=== PATIENT | male | born 1950 | race Caucasian/White ===

== ENCOUNTER 2018-01-24 09:07 | Outpatient (CLI) | payer MEDICARE, OTHER ==
[2018-01-24 10:32] LABS: Bilirubin Negative (Negative); Blood, Urine Negative (Negative); Clarity CLEAR (Clear); Glucose, Urine (Dipstick) Negative (Negative); Leukocyte Negative (Negative); Nitrite Negative (Negative); Protein, Urine (Dipstick) Negative (Neg-Trace); Specific Gravity, Urine 1.022 (1.002-1.036); Urobilinogen 0.2 mg/dL (0.2-1.0); pH, Urine 5.5 (5.0-9.0)
[2018-01-24 10:44] LABS: Bacteria/HPF None Seen HPF (None Seen); Hyaline Casts/LPF 0-3 HYALINE CAST LPF (0-3 Hyaline); Squamous Epithelial None Seen HPF (0-3); WBC/HPF None Seen HPF (0-3)
--- NOTE | 2018-01-24 13:27 | RAD ---
PA AND LATERAL CHEST: History: Pre op. Comparison: 02-16-10 FINDINGS: Heart size is enlarged with post op sternotomy change and valve replacement. Surgical clips are seen overlying the right upper chest. The lungs are clear of any infiltrative process. IMPRESSION: Cardiomegaly. No active intrathoracic disease. POS: [facility]
== END 2018-01-24 09:08 | disposition home or self-care (01) ==
LOC: LABBT 09:07
PROVIDERS: ATTEND Orthopaedic Surgery
DX: Z01.818 Encounter for other preprocedural examination (principal); M17.11 Unilateral primary osteoarthritis, right knee
CPT/HCPCS: 71046; 81001; 87081; 93005; 93010

== ENCOUNTER 2018-01-31 07:49 | Outpatient (CLI) | payer MEDICARE ==
[2018-01-31 08:39] LABS: #Basophils 0.1 thou/uL (0.0-0.2); #Eosinphils 0.2 thou/uL (0.0-0.7); #Lymphocytes 1.6 thou/uL (1.20-3.40); #Monocytes 0.8 thou/uL (0.11-0.59); #Neutrophils 4.8 thou/uL (1.40-6.50); %Basophils 0.8 % (0.0-1.0); %Eosinophils 2.7 % (0.0-10.0); %Lymphocytes 21.2 % (21.0-51.0); %Monocytes 10.9 % (0.0-10.0); %Neutrophils 64.4 % (42.0-75.0); Hemoglobin 14.6 g/dL (14.0-18.0); Mean Corpuscular HGB CONC 32.8 g/dL (32.0-36.0); Mean Corpuscular Hemoglobin 32.6 pg (27.0-31.0); Mean Corpuscular Volume 99.2 fL (78.0-98.0); Mean Platelet Volume 6.3 fL (7.4-10.4); Platelet Count 248 thou/uL (130-400); RBC Distribution Width 12.2 % (11.5-14.5); Red Blood Cell (RBC) Count 4.49 mill/uL (4.70-6.10); White Blood Cell (WBC) Count 7.5 thou/uL (4.8-10.8)
[2018-01-31 08:59] LABS: Anion Gap 10 mmol/L (10-20); BUN (Urea Nitrogen) 18 mg/dL (8.4-25.7); Calc. Creatinine Clearance 0 mL/min (70-130); Calcium 9.4 mg/dL (7.8-10.44); Carbon Dioxide 26 mmol/L (23-31); Chloride 105 mmol/L (98-107); Estimated GFR-MDRD 75; Glucose 98 mg/dL (80-115); Potassium 4.3 mmol/L (3.5-5.1); Sodium 137 mmol/L (136-145)
[2018-01-31 09:00] LABS: INR-International Normal Ratio 1.8
== END 2018-01-31 07:50 | disposition home or self-care (01) ==
LOC: LABBT 07:49
PROVIDERS: ATTEND Orthopaedic Surgery
DX: Z01.812 Encounter for preprocedural laboratory examination (principal); M17.11 Unilateral primary osteoarthritis, right knee
CPT/HCPCS: 80048; 85025; 85610; 86850; 86900; 86901

== ENCOUNTER 2018-02-05 05:31 | Inpatient (IN) | payer MEDICARE, OTHER ==
[2018-01-24 09:41] VITALS: BMI 28.4
[2018-02-05] MEDS ORDERED: Sodium Chloride 0.9% 100 ML ONE (06:10)
[2018-02-05] MEDS ORDERED: CEFAZOLIN/Water 2 GM/20 ML SYRINGE ONE (06:10)
[2018-02-05] MEDS ORDERED: Midazolam HCl 2 mg/2 ml Vial ONE (06:17)
[2018-02-05] MEDS ORDERED: Fentanyl 100 MCG/2 ML VIAL ONE ×4 (06:17→09:11)
[2018-02-05] MEDS ORDERED: PROPOFOL 20 ML ONE (06:20)
[2018-02-05] MEDS ORDERED: Lidocaine 1% (PF) 30 ML VIAL ONE ×2 (06:20→06:25)
[2018-02-05] MEDS ORDERED: Vancomycin HCl 1.5 GM in Sodium Chloride 0.9% 250 ML 300 ML IVPB SCH (06:30)
[2018-02-05] MEDS ORDERED: Zolpidem Tartrate 5 MG TAB PO PRN ×2 (06:54→07:47)
[2018-02-05] MEDS ORDERED: Promethazine HCl 25 MG/ML VIAL IM PRN ×2 (06:54→07:47)
[2018-02-05] MEDS ORDERED: diphenhydrAMINE 25 MG CAP PO PRN (06:54)
[2018-02-05] MEDS ORDERED: Acetaminophen 325 MG TAB PO PRN (06:54)
[2018-02-05] MEDS ORDERED: Fentanyl 100 MCG/2 ML VIAL SLOW IVP PRN ×2 (06:54)
[2018-02-05] MEDS ORDERED: traMADol HCl 50 MG TAB PO PRN ×3 (06:54→07:47)
[2018-02-05] MEDS ORDERED: HYDROcodone/Acetaminophen 10/325 mg Tablet PO PRN ×3 (06:54→07:47)
[2018-02-05] MEDS ORDERED: Ondansetron PF 4 MG/2 ML Vial IVP PRN ×2 (06:54→07:47)
[2018-02-05] MEDS ORDERED: Ketorolac Tromethamine 30 MG/ML VIAL IVP PRN (07:47)
[2018-02-05] MEDS ORDERED: Fentanyl 100 MCG/2 ML VIAL IV PRN (07:47)
[2018-02-05] MEDS ORDERED: Ondansetron HCl/PF 4 MG/2 ML Vial IVP PRN (08:25)
[2018-02-05] MEDS ORDERED: Aspirin 81 mg Enteric Coated Tablet PO SCH ×2 (09:00)
[2018-02-05] MEDS ORDERED: PSEUDOEPHEDRINE HCL 120 MG PO SCH (09:00)
--- NOTE | 2018-02-05 09:44 | RAD ---
RIGHT KNEE TWO VIEWS: History: 67-year-old male with history of post op total knee arthroplasty. FINDINGS/IMPRESSION: Recent total knee arthroplasty changes are noted without evidence for dislocation or periprosthetic f racture. POS: [facility]
[2018-02-05] MEDS: Sodium Chloride 0.9% 1,000 ML IV SCH ×3 (10:16→19:14)
[2018-02-05] MEDS: Ferrous Gluconate 324 MG TAB PO SCH ×2 (10:17→21:24)
[2018-02-05] MEDS: Multivitamin W/ Minerals 1 TAB PO SCH (10:17)
--- NOTE | 2018-02-05 10:17 | OP ---
PREOPERATIVE DIAGNOSIS: Degenerative joint disease, right knee. POSTOPERATIVE DIAGNOSIS: Degenerative joint disease, right knee. SURGEON: Matt Olivier M.D. DRYING ROOM OPERATOR: Dom Rose PA-C. BLOOD LOSS: Minimal. SPECIMENS: None. DRAINS: None. COMPLICATIONS: None. TOURNIQUET TIME: 49 minutes. IMPLANTS USED: Jose Triathlon 6 femur, 6 tibia, 9 mm CSX3 polyethylene and A38 patella. PROCEDURE IN DETAIL: After informed consent was obtained in the preoperative holding area. The bhumi ent was taken to the operative suite where general anesthesia was induced. Once adequate level of ge neral anesthesia was obtained, the patient was positioned and a well-padded tourniquet was placed chris und the right proximal thigh. The right lower extremity was then prepped and draped in the usual nigel rile fashion. Prior to exsanguination, a time out was called and all members of the surgical team ag gil upon site, surgeon, and patient. The extremity was then exsanguinated and the tourniquet was ra ised. A midline longitudinal incision was then made directly over the patella extending two fingerbr eadths above the superior pole of the patella and two fingerbreadths inferior to the inferior patella r pole of the patella. Deeper subcutaneous layers were dissected sharply and local bleeding was cont rolled with Bovie electrocautery. A quad tendon longitudinal split was then made sharply and a media n parapatellar arthrotomy was carried out both sharp and with Bovie electrocautery, carried down to o ne fingerbreadth medial to the tibial tubercle. The knee was then placed into flexion and the patell a was everted nicely, and a copious fat pad ectomy was performed allowing for greater exposure of the tibia. The computer-assisted distal femoral fiducial was then placed and pinned firmly, and the dis hang femoral cutting guide was pinned firmly into place. The oscillating saw was then used to remove the appropriate amount of bone. The 4-in-1 cutting block was then placed on the distal femur and the oscillating saw was used to remove the appropriate amount of bone off of the anterior, posterior, an d chamfer cuts. After completion of bone cuts, the anterior cruciate ligament was resected sharply a nd the posterior cruciate ligament retractor was placed and the tibia was subluxed for better exposur e. Partial meniscectomies were carried out, and the tibial computer-assisted fiducial was pinned, an d the cutting guide was placed. Oscillating saw was then used to remove the bone with Hohmann retrac tors used to take care and protect the collateral ligaments. After the tibial resection was performe d, a laminar land surveyor manager was placed in between the freshened bone cuts. The knee placed at 90 degrees a nd further bilateral meniscectomies were carried out, and the curved osteotome and curettage was used to remove any excess bone spurs in the posterior compartment. The trial femoral component, tibial b aseplate were placed with the appropriate polyethylene trial insert with an appropriate polyethylene spacer and patellar button. The knee was taken through full range of motion with flexion and extensi on from 0-90 degrees and patellar broach squarely in the trochlea without any squinting or subluxatio n noted. The knee was also stable to varus and valgus stressing at 0, 15, 45, and 90 degrees of flex ion. The drawer was negative. All trial components were then removed and the keel punch was used to provide the appropriate defect in the tibia with a mallet. The freshened bone cuts were copiously ir rigated with pulsatile lavage of about 1-1/2 liters to remove all excess debris. The freshened bone cuts were then dried and with suction and lap sponge. The knee was placed in flexion and retractors were placed to provide access to all bone cuts. Tobramycin impregnated methyl methacrylate cement wa s then placed on the freshened bone cuts and implants which were malleted firmly into place. Curetta ge and Falkner elevators were used to remove any excess bone cement. The knee was placed into full ext ension and the patellar button was placed under compression, and the cement was allowed to cure. Onc e completed, the components were again taken through full range of motion and copious irrigation of t he knee was carried out with another liter of normal saline. All components were inspected fully wit h full range of motion and varus and valgus stressing. There was no laxity noted and full extension w as observed clinically. Primary closure was accomplished with #2 interrupted Vicryl stitch of the ar throtomy defect. This was oversewn with a #2 running Quill barbed stitch. The gravitational platele t system was then injected into the arthrotomy prior to closure. The subcutaneous layer was then jose alberto sed with a running 0 barbed Monocryl stitch and skin closure accomplished with a running subcuticular 3-0 Monocryl barbed Quill stitch and augmented with cement on the skin. Tourniquet was lowered. Go od spontaneous return of distal pulses was noted clinically and a sterile dressing was applied to the incision. The procedure was terminated without any complications. The patient was awakened in the operative suite and the tourniquet was removed, and the patient was taken to the recovery room in sta ble condition.
[2018-02-05] MEDS: Senokot S 8.6-50 MG TAB PO SCH ×2 (10:18→21:24)
[2018-02-05] MEDS ORDERED: Bupivacaine 0.25% HCL 30 ML VIAL ONE (12:41)
[2018-02-05] MEDS ORDERED: Ropivacaine 0.5% HCl/PF (150 MG/30 ML VIAL) ONE (12:41)
[2018-02-05] MEDS ORDERED: Dexamethasone 20 MG/5 ML VIAL ONE (12:54)
[2018-02-05] MEDS ORDERED: PHENYLEPHRINE-NS 100 MCG/ML 10 ML SYRINGE ONE (12:54)
[2018-02-05] MEDS ORDERED: Ketorolac Tromethamine 30 MG/ML VIAL ONE (12:54)
[2018-02-05] MEDS ORDERED: Ondansetron PF 4 MG/2 ML Vial ONE (12:54)
[2018-02-05] MEDS ORDERED: PROPOFOL 200 MG/20 ML VIAL ONE (12:54)
--- NOTE | 2018-02-05 13:15 | CON ---
DATE OF CONSULTATION: 02/05/2018 HISTORY OF PRESENT ILLNESS: This is a 67-year-old white male who is postop day #0, status post total right knee replacement by Dr. Olivier. The patient has a history of coronary artery disease, hyperte nsion, hyperlipidemia. He is doing well at this time. He is presently reading, in no acute distress . He is sitting up in bed. PAST MEDICAL HISTORY: Hypothyroidism, coronary artery disease, hypertension, hyperlipidemia. PAST SURGICAL HISTORY: Cardiac catheterization in 1993 and 2009, coronary artery bypass grafting x3 11/2009 with aortic valve replacement. FAMILY HISTORY: Father with heart disease. Mother with hyperlipidemia. SOCIAL HISTORY: He is . 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 He is a nonsmoker. MEDICATIONS: Aspirin 81 mg daily, Coumadin 7.5 at bedtime, Crestor 40 mg daily, Levoxyl 75 mg daily, Prilosec 40 mg daily. ALLERGIES: None. REVIEW OF SYSTEMS: As above. PHYSICAL EXAMINATION: VITAL SIGNS: Temperature 97.8, pulse 83, respirations 18, pulse ox 97, blood pressure 154/72. HEENT: No acute distress. HEART: Regular rate and rhythm with a valve replacement noted. LUNGS: Clear. ABDOMEN: Soft. EXTREMITIES: Right knee in brace. No edema present. LABORATORY AND X-RAY FINDINGS: None. ASSESSMENT: 1. Postop day #0, status post total right knee replacement. 2. Coronary artery disease. 3. Hypertension. 4. Hyperlipidemia. 5. Hypothyroidism. 6. Gastroesophageal reflux disease. PLAN: 1. Continue routine postop care and therapy. 2. Coumadin has been restarted and the Lovenox will be continued until Coumadin is therapeutic. 3. Continue Crestor, Levoxyl and Prilosec. 4. We will continue to follow and will follow up in the office in the next week.
[2018-02-05] MEDS: Prenatal Vitamin 1 TAB PO SCH (14:29)
[2018-02-05] MEDS: CEFAZOLIN/Water 2 GM/20 ML SYRINGE SLOW IVP SCH ×2 (14:29→21:28)
[2018-02-05] MEDS: Ezetimibe 10 MG TAB PO SCH (14:29)
[2018-02-05] MEDS ORDERED: Warfarin Sodium 5 MG TAB PO ONE (17:00)
[2018-02-05] MEDS ORDERED: Non-Formulary Item 1 EACH (Omeprazole Magnesium [Prilosec] 10 MG) PO SCH (21:00)
[2018-02-05] MEDS ORDERED: Non-Formulary Item 1 EACH (Bimatoprost [Lumigan] 1 DROP) EA EYE SCH (21:00)
[2018-02-05] MEDS: Rosuvastatin 20 MG TAB PO SCH (21:24)
[2018-02-05] MEDS: Latanoprost 0.005% Ophth Soln 2.5 ml Bottle EA EYE SCH (21:25)
[2018-02-05] MEDS: HYDROcodone/Acetaminophen 10/325 mg Tablet PO PRN (21:37)
[2018-02-06] MEDS: HYDROcodone/Acetaminophen 10/325 mg Tablet PO PRN ×5 (02:13→20:15)
[2018-02-06] MEDS: Sodium Chloride 0.9% 1,000 ML IV SCH ×2 (03:26→07:38)
[2018-02-06 06:34] LABS: Prothrombin Time 13.4 SEC (12.0-14.7)
[2018-02-06 06:48] LABS: Hemoglobin 12.4 g/dL (14.0-18.0); Mean Corpuscular HGB CONC 32.2 g/dL (32.0-36.0); Mean Corpuscular Hemoglobin 32.5 pg (27.0-31.0); Mean Platelet Volume 6.3 fL (7.4-10.4); Platelet Count 196 thou/uL (130-400); RBC Distribution Width 12.3 % (11.5-14.5); Red Blood Cell (RBC) Count 3.83 mill/uL (4.70-6.10); White Blood Cell (WBC) Count 15.4 thou/uL (4.8-10.8)
--- NOTE | 2018-02-06 08:43 | PRG ---
DATE OF SERVICE: 02/06/2018 SUBJECTIVE: The patient continues to do well. However, earlier the patient was raising his knee and he felt a pop and is little bit concerned because this was followed by pain. He will discuss this w ith Dr. Olivier. OBJECTIVE: VITAL SIGNS: Temperature 97.8, pulse 82, respirations 16, pulse ox 93, blood pressure 104/54. LUNGS: Clear. ABDOMEN: Soft. EXTREMITIES: No edema. LABORATORY: White count 15.4, H&H 12 and 38. ASSESSMENT: 1. Postop day #1, status post right total knee replacement. 2. Coronary artery disease. 3. Hypertension. 4. Hyperlipidemia. 5. Hypothyroid. 6. Gastroesophageal reflux disease. PLAN: 1. Continue routine postop care. Hopefully, can be discharged tomorrow. 2. Continue Coumadin and Lovenox. 3. Continue Crestor, Levoxyl and Prilosec. 4. We will follow up in the office in the next few days.
[2018-02-06] MEDS: Prenatal Vitamin 1 TAB PO SCH (09:08)
[2018-02-06] MEDS: Multivitamin W/ Minerals 1 TAB PO SCH (09:08)
[2018-02-06] MEDS: Ferrous Gluconate 324 MG TAB PO SCH ×2 (09:08→20:15)
[2018-02-06] MEDS: Enoxaparin Sodium 40 MG/0.4 ML SYRINGE SC SCH ×2 (09:09→20:13)
[2018-02-06] MEDS: Senokot S 8.6-50 MG TAB PO SCH ×2 (09:09→20:15)
[2018-02-06] MEDS: Ezetimibe 10 MG TAB PO SCH (09:09)
[2018-02-06] MEDS: Ropivacaine HCl/PF 250 ML in Premix Bag 1 BAG NERVE BLCK SCH (10:13)
[2018-02-06] MEDS ORDERED: Warfarin Sodium 7.5 MG TAB PO SCH (17:00)
[2018-02-06] MEDS: Latanoprost 0.005% Ophth Soln 2.5 ml Bottle EA EYE SCH (20:13)
[2018-02-06] MEDS: Rosuvastatin 20 MG TAB PO SCH (20:14)
[2018-02-07 06:02] LABS: Hemoglobin 10.8 g/dL (14.0-18.0); Mean Corpuscular HGB CONC 33.4 g/dL (32.0-36.0); Mean Corpuscular Hemoglobin 33.4 pg (27.0-31.0); Mean Platelet Volume 6.4 fL (7.4-10.4); Platelet Count 180 thou/uL (130-400); RBC Distribution Width 12.1 % (11.5-14.5); Red Blood Cell (RBC) Count 3.23 mill/uL (4.70-6.10); White Blood Cell (WBC) Count 17.1 thou/uL (4.8-10.8)
--- NOTE | 2018-02-07 08:24 | PRG ---
DATE OF SERVICE: 02/07/2018. SUBJECTIVE: The patient is awake, alert, comfortable and doing well. No complaints. OBJECTIVE: VITAL SIGNS: Temperature 98.7, pulse 88, respirations 18, pulse ox 93, blood pressure 158/79. HEART: Regular rate and rhythm. LUNGS: Clear. ABDOMEN: Soft. EXTREMITIES: Right knee with swelling. LABORATORY DATA: INR pending. ASSESSMENT: 1. Postop day #2 status post right total knee replacement. 2. Coronary artery disease. 3. Hypertension. Blood pressure is slightly elevated this morning. We will continue to follow. If remains elevated, then we will add additional medication. 4. Hyperlipidemia. 5. Hypothyroidism. 6. Reflux. PLAN: 1. Continue routine postop care and physical therapy. 2. INR level pending. May have to stay another day if INR remains low. Lovenox has been stopped du e to the leg swelling. 3. We will add additional antihypertensive if blood pressure remains elevated.
[2018-02-07] MEDS: Enoxaparin Sodium 40 MG/0.4 ML SYRINGE SC SCH ×2 (09:36→21:18)
[2018-02-07] MEDS: Prenatal Vitamin 1 TAB PO SCH (09:37)
[2018-02-07] MEDS: Ezetimibe 10 MG TAB PO SCH (09:37)
[2018-02-07] MEDS: Senokot S 8.6-50 MG TAB PO SCH ×2 (09:37→21:18)
[2018-02-07] MEDS: Multivitamin W/ Minerals 1 TAB PO SCH (09:37)
[2018-02-07] MEDS: Ferrous Gluconate 324 MG TAB PO SCH ×2 (09:37→21:18)
[2018-02-07 10:07] LABS: INR-International Normal Ratio 1.5; Prothrombin Time 18.2 SEC (12.0-14.7)
[2018-02-07] MEDS: HYDROcodone/Acetaminophen 10/325 mg Tablet PO PRN ×2 (13:42→18:35)
[2018-02-07] MEDS: Ropivacaine HCl/PF 250 ML in Premix Bag 1 BAG NERVE BLCK SCH (14:31)
[2018-02-07] MEDS: Sodium Chloride 0.9% 1,000 ML IV SCH ×3 (14:32→19:16)
[2018-02-07] MEDS ORDERED: Warfarin Sodium 10 MG TAB PO SCH (17:00)
[2018-02-07] MEDS: Rosuvastatin 20 MG TAB PO SCH (21:18)
[2018-02-07] MEDS: Latanoprost 0.005% Ophth Soln 2.5 ml Bottle EA EYE SCH (21:34)
[2018-02-08] MEDS: Sodium Chloride 0.9% 1,000 ML IV SCH (01:47)
[2018-02-08] MEDS: HYDROcodone/Acetaminophen 10/325 mg Tablet PO PRN ×2 (04:51→08:22)
[2018-02-08 06:17] LABS: Hemoglobin 10.2 g/dL (14.0-18.0); Mean Corpuscular Hemoglobin 33.1 pg (27.0-31.0); Mean Platelet Volume 7.1 fL (7.4-10.4); Platelet Count 190 thou/uL (130-400); RBC Distribution Width 12.2 % (11.5-14.5); Red Blood Cell (RBC) Count 3.09 mill/uL (4.70-6.10); White Blood Cell (WBC) Count 12.8 thou/uL (4.8-10.8)
[2018-02-08 06:20] LABS: INR-International Normal Ratio 1.5; Prothrombin Time 18.5 SEC (12.0-14.7)
--- NOTE | 2018-02-08 07:51 | PRG ---
DATE OF SERVICE: 02/08/2018 SUBJECTIVE: The patient is doing well this morning. He states his leg swelling is decreasing somewh at. OBJECTIVE: VITAL SIGNS: Temperature 99.4, pulse 91, respirations 18, pulse ox 96 on room air, blood pressure 13 3/69. HEART: Regular rate and rhythm. LUNGS: Clear. ABDOMEN: Soft. EXTREMITIES: Right knee swelling appears to decrease. LABORATORY DATA: H&H is 10 and 31. INR 1.5. ASSESSMENT: 1. Postop day #3 status post total right knee replacement. 2. Coronary artery disease. 3. Hypertension. 4. Hyperlipidemia. 5. Hypothyroidism. 6. Reflux. PLAN: Patient's right knee swelling has decreased. He is doing well at this time. His INR is 1.5 t kumar. The patient has continued to receive the Lovenox. He has 4 doses at home. I feel he can go h ome today. He can continue his Lovenox injections on Sunday and Sunday. I recommend that he recei ve Coumadin 10 mg today prior to discharge and to continue his regular dose of 7.5 on Sunday and . Then follow up on Sunday with me and I will redraw his INR.
[2018-02-08 08:05] VITALS: BP 151/77; TEMP 98.3
[2018-02-08] MEDS: Enoxaparin Sodium 40 MG/0.4 ML SYRINGE SC SCH (08:21)
[2018-02-08] MEDS: Multivitamin W/ Minerals 1 TAB PO SCH (08:22)
[2018-02-08] MEDS: Ezetimibe 10 MG TAB PO SCH (08:22)
[2018-02-08] MEDS: Prenatal Vitamin 1 TAB PO SCH (08:22)
[2018-02-08] MEDS: Senokot S 8.6-50 MG TAB PO SCH (08:22)
[2018-02-08] MEDS: Ferrous Gluconate 324 MG TAB PO SCH (08:22)
--- NOTE | 2018-02-08 12:52 | DIS ---
DATE OF ADMISSION: 02/05/2018 DATE OF DISCHARGE: 02/08/2018 DIAGNOSES: Right total knee replacement, history of prosthetic valve replacement. HOSPITAL COURSE: The patient was admitted to the hospital and underwent total knee arthroplasty with out difficulty. He was kept an extra day for difficulty voiding. He has been on Lovenox bridge ther apy plus Coumadin. His INR is 1.5 at the time of discharge. He has Lovenox for home use. He has a small amount of bloody drainage from the wound. Plan at this time is to discharge home. No physical therapy. Recheck the wound in 4 days. He will follow up with , his primary care doctor in 3 days. There were no complications.
== END 2018-02-08 11:12 | disposition home or self-care (01) | DRG 470 ==
LOC: SDC 05:31 → SJJU 10:04
PROVIDERS: ADMIT Orthopaedic Surgery; ATTEND Orthopaedic Surgery
PROC: 0SRC069 Replacement of Right Knee Joint with Oxidized Zirconium on Polyethylene Synthetic Substitute, Cemented, Open Approach (ICD-10-PCS; principal; 2018-02-05)
PROC: 3E0T3BZ Introduction of Anesthetic Agent into Peripheral Nerves and Plexi, Percutaneous Approach (ICD-10-PCS; 2018-02-05)
DX: M17.11 Unilateral primary osteoarthritis, right knee (principal); I25.10 Atherosclerotic heart disease of native coronary artery without angina pectoris; I10 Essential (primary) hypertension; E78.5 Hyperlipidemia, unspecified; E03.9 Hypothyroidism, unspecified; K21.9 Gastro-esophageal reflux disease without esophagitis; Z79.01 Long term (current) use of anticoagulants; Z95.2 Presence of prosthetic heart valve; Z79.82 Long term (current) use of aspirin; Z95.1 Presence of aortocoronary bypass graft
CPT/HCPCS: 36415; 85027; 85610; 96374; C1713; C1776; G8978-GP-CJ; G8979-GP-CI; J1100; J1650; J1885; J2001; J2250; J2405; J2704; J2795; J3010; J3370; J7050; S0020

== ENCOUNTER 2020-12-13 15:37 | Outpatient (CLI) | payer MEDICARE ==
[2020-12-13 16:51] LABS: ALT (SGPT) 20 U/L (8-55); AST (SGOT) 21 U/L (5-34); Alkaline Phosphatase 52 U/L (40-110); Anion Gap 11 mmol/L (10-20); BUN (Urea Nitrogen) 13 mg/dL (8.4-25.7); Bilirubin, Total 1.9 mg/dL (0.2-1.2); Calc. Creatinine Clearance 0 mL/min (70-130); Calcium 9.3 mg/dL (7.8-10.44); Carbon Dioxide 28 mmol/L (23-31); Chloride 106 mmol/L (98-107); Globulin 2.2 g/dL (2.4-3.5); Glucose 98 mg/dL (83-110); Potassium 3.9 mmol/L (3.5-5.1); Protein, Total 6.2 g/dL (5.8-8.1); Sodium 141 mmol/L (136-145)
[2020-12-13 16:57] LABS: %Basophils 0.9 % (0.0-2.0); %Eosinophils 1.9 % (0.0-6.0); %Lymphocytes 20.6 % (18.0-47.0); %Monocytes 11.6 % (0.0-10.0); %Neutrophils 64.7 % (40.0-75.0); Hemoglobin 13.4 g/dL (13.5-17.5); Mean Corpuscular HGB CONC 33.4 g/dL (32.0-36.0); Mean Corpuscular Hemoglobin 32.4 pg (27.0-33.0); Mean Corpuscular Volume 97.1 fl (81.2-95.1); Mean Platelet Volume 9.1 fl (7.4-10.4); Platelet Count 216 10x3/uL (150-450); RBC Distribution Width 12.6 % (11.5-14.5); Red Blood Cell (RBC) Count 4.13 10x6/uL (4.32-5.72); White Blood Cell (WBC) Count 6.9 10x3/uL (3.5-10.5)
[2020-12-13 16:58] LABS: #Basophils 0.1 10x3/uL (0.0-0.2); #Eosinphils 0.1 10x3/uL (0.0-0.5); #Monocytes 0.8 10x3/uL (0.0-1.1); #Neutrophils 4.5 10x3/uL (1.5-8.4)
[2020-12-13 17:09] LABS: INR-International Normal Ratio 1.5; PTT 34.1 sec (22.0-33.0); Prothrombin Time 16.4 sec (9.5-12.1)
[2020-12-14 13:05] LABS: SARS-CoV-2 PCR by NAA Not Detected (NotDetected)
== END 2020-12-13 15:38 | disposition home or self-care (01) ==
LOC: LABBT 15:37
PROVIDERS: ATTEND Internal Medicine Cardiovascular Disease
DX: Z01.812 Encounter for preprocedural laboratory examination (principal); I25.10 Atherosclerotic heart disease of native coronary artery without angina pectoris; R94.39 Abnormal result of other cardiovascular function study; Z20.822 Contact with and (suspected) exposure to COVID-19
CPT/HCPCS: 80053; 85025; 85610; 85730; U0003; U0005

== ENCOUNTER 2022-08-17 17:30 | Outpatient (CLI) | payer MEDICARE | END 2022-08-17 17:31 | disposition home or self-care (01) | LOC: SLEEPLAB 17:30 | PROVIDERS: ATTEND Family Medicine | DX: G47.10 Hypersomnia, unspecified (principal); G47.33 Obstructive sleep apnea (adult) (pediatric) | CPT/HCPCS: 95800 ==

== ENCOUNTER 2022-10-27 07:40 | Day surgery (SDC) | payer MEDICARE ==
[2022-10-26 12:19] VITALS: BMI 26.5
[2022-10-27] MEDS ORDERED: Lidocaine 1% PF 5 ML VIAL ONE (11:22)
[2022-10-27] MEDS ORDERED: PROPOFOL 200 MG/20 ML VIAL ONE (11:22)
== END 2022-10-27 13:30 | disposition home or self-care (01) ==
LOC: SDC 07:40
PROVIDERS: ATTEND Internal Medicine Gastroenterology
PROC: 0DBN8ZZ Excision of Sigmoid Colon, Via Natural or Artificial Opening Endoscopic (ICD-10-PCS; principal; 2022-10-27)
PROC: 0DBL8ZZ Excision of Transverse Colon, Via Natural or Artificial Opening Endoscopic (ICD-10-PCS; 2022-10-27)
PROC: 0DB58ZX Excision of Esophagus, Via Natural or Artificial Opening Endoscopic, Diagnostic (ICD-10-PCS; 2022-10-27)
DX: D12.2 Benign neoplasm of ascending colon (principal); D12.5 Benign neoplasm of sigmoid colon; D50.0 Iron deficiency anemia secondary to blood loss (chronic); K22.70 Barrett's esophagus without dysplasia; K44.9 Diaphragmatic hernia without obstruction or gangrene; K21.9 Gastro-esophageal reflux disease without esophagitis; I25.10 Atherosclerotic heart disease of native coronary artery without angina pectoris; E78.00 Pure hypercholesterolemia, unspecified; G47.30 Sleep apnea, unspecified; Z98.49 Cataract extraction status, unspecified eye; Z95.0 Presence of cardiac pacemaker; Z79.82 Long term (current) use of aspirin; Z79.890 Hormone replacement therapy; Z79.01 Long term (current) use of anticoagulants; Z79.899 Other long term (current) drug therapy; Z87.891 Personal history of nicotine dependence
CPT/HCPCS: 88305; 88312; 88313; J2704

== ENCOUNTER 2022-11-16 10:57 | Outpatient (CLI) | payer MEDICARE ==
[2022-11-16 12:56] LABS: #Monocytes 0.6 10x3/uL (0.0-1.1); #Neutrophils 4.2 10x3/uL (1.5-8.4); %Basophils 0.5 % (0.0-2.0); %Eosinophils 0.5 % (0.0-6.0); %Lymphocytes 22.6 % (18.0-47.0); %Monocytes 9.4 % (0.0-10.0); %Neutrophils 66.8 % (40.0-75.0); Hemoglobin 9.3 g/dL (13.5-17.5); Mean Corpuscular HGB CONC 29.6 g/dL (32.0-36.0); Mean Corpuscular Hemoglobin 27.6 pg (27.0-33.0); Mean Corpuscular Volume 93.2 fl (81.2-95.1); Mean Platelet Volume 8.7 fl (7.4-10.4); Platelet Count 369 10x3/uL (150-450); RBC Distribution Width 17.4 % (11.5-14.5); Red Blood Cell (RBC) Count 3.37 10x6/uL (4.32-5.72); White Blood Cell (WBC) Count 6.3 10x3/uL (3.5-10.5)
[2022-11-16 13:17] LABS: INR-International Normal Ratio 2.3; Prothrombin Time 24.8 sec (9.5-12.1)
[2022-11-16 13:23] LABS: Anion Gap 14 mmol/L (10-20); BUN (Urea Nitrogen) 13 mg/dL (8.4-25.7); Calc. Creatinine Clearance 0 mL/min (70-130); Calcium 8.8 mg/dL (7.8-10.44); Carbon Dioxide 25 mmol/L (23-31); Chloride 108 mmol/L (98-107); Estimated GFR 92; Glucose 97 mg/dL (83-110); Potassium 3.8 mmol/L (3.5-5.1); Sodium 143 mmol/L (136-145)
== END 2022-11-16 10:58 | disposition home or self-care (01) ==
LOC: LABBT 10:57
PROVIDERS: ATTEND Orthopaedic Surgery
DX: Z01.812 Encounter for preprocedural laboratory examination (principal); M25.561 Pain in right knee; Z96.651 Presence of right artificial knee joint
CPT/HCPCS: 80048; 85025; 85610; 87081

== ENCOUNTER 2022-11-16 15:49 | Inpatient (IN) | payer MEDICARE ==
[2022-11-16] MEDS ORDERED: Cefepime 2 GM VIAL ONE (16:41)
[2022-11-16 16:58] LABS: #Monocytes 0.7 thou/uL (0.11-0.59); #Neutrophils 4.1 thou/uL (1.40-6.50); %Basophils 0.3 % (0.0-1.0); %Eosinophils 0.7 % (0.0-10.0); %Lymphocytes 18.8 % (21.0-51.0); %Monocytes 11.1 % (0.0-10.0); %Neutrophils 68.9 % (42.0-75.0); Hematocrit 29.6 % (42.0-52.0); Mean Corpuscular HGB CONC 30.4 g/dL (32.0-36.0); Mean Corpuscular Hemoglobin 28.2 pg (27.0-31.0); Mean Corpuscular Volume 92.8 fl (78.0-98.0); Mean Platelet Volume 8.8 fL (7.4-10.4); Platelet Count 332 10x3/uL (130-400); RBC Distribution Width 17.3 % (11.5-14.5); Red Blood Cell (RBC) Count 3.19 mill/uL (4.70-6.10)
[2022-11-16] MEDS ORDERED: VANCOMYCIN 2 GRAM/500 ML BAG 2 GM in Premix Bag 1 BAG IVPB SCH (17:15)
[2022-11-16 17:21] LABS: ALT (SGPT) 10 U/L (8-55); AST (SGOT) 16 U/L (5-34); Albumin 3.2 g/dL (3.4-4.8); Alkaline Phosphatase 59 U/L (40-110); Anion Gap 12 mmol/L (10-20); BUN (Urea Nitrogen) 15 mg/dL (8.4-25.7); Bilirubin, Total 0.3 mg/dL (0.2-1.2); Calc. Creatinine Clearance 0 mL/min (70-130); Calcium 8.8 mg/dL (7.8-10.44); Carbon Dioxide 24 mmol/L (23-31); Chloride 108 mmol/L (98-107); Estimated GFR 90; Globulin 3.8 g/dL (2.4-3.5); Glucose 111 mg/dL (83-110); Potassium 3.8 mmol/L (3.5-5.1); Sodium 140 mmol/L (136-145)
[2022-11-16] MEDS ORDERED: Dextrose 5% in Water 1,000 ML IV PRN (18:31)
[2022-11-16] MEDS ORDERED: Glucagon 1 MG/ML KIT IM PRN (18:31)
[2022-11-16] MEDS ORDERED: HumaLOG 300 UNITS/3 ML VIAL SC PRN (18:31)
[2022-11-16] MEDS ORDERED: Dextrose 50% Abboject 50 ML SYRINGE SLOW IVP PRN (18:31)
[2022-11-16] MEDS ORDERED: HYDROcodone/Acetaminophen 7.5/325 mg Tablet PO PRN (18:37)
[2022-11-16 18:42] LABS: Bacteria/HPF None Seen HPF (None Seen); Bilirubin Negative (Negative); Blood, Urine 2+ (Negative); CAUTI Indications for Culture Dysuria,urgency,freq; Clarity Clear (Clear); Glucose, Urine (Dipstick) Normal (Negative); Ketone, Urine Negative (Negative); Leukocyte Negative Leu/uL (Negative); Mucous/LPF Rare LPF (<2+); Nitrite Negative (Negative); Protein, Urine (Dipstick) 30 mg/dL (Neg-Trace); Specific Gravity, Urine 1.032 (1.002-1.036); Squamous Epithelial 0-3 HPF (0-3); Urobilinogen 6 mg/dL (Less than 2); WBC/HPF 0-3 HPF (0-3)
[2022-11-16 18:43] LABS: Urine Culture Reflex No No
[2022-11-16] MEDS ORDERED: VANCOMYCIN IVPB PRN (20:00)
[2022-11-16] MEDS ORDERED: Ondansetron ODT 4 MG TAB SL PRN (20:00)
[2022-11-16] MEDS ORDERED: Acetaminophen 325 MG TAB PO PRN (20:00)
[2022-11-16] MEDS ORDERED: Ondansetron PF 4 MG/2 ML Vial IVP PRN (20:00)
[2022-11-16] MEDS: Tamsulosin HCl 0.4 MG CAP PO SCH (20:55)
[2022-11-16] MEDS: Acetaminophen 325 MG TAB PO PRN (20:55)
[2022-11-16] MEDS: Rosuvastatin 20 MG TAB PO SCH (20:55)
[2022-11-16] MEDS ORDERED: Vancomycin 1.5 GRAM/300 ML BAG 1.5 GM in Premix Bag 1 BAG IVPB SCH (21:00)
[2022-11-17 04:33] LABS: #Eosinphils 0.1 thou/uL (0.0-0.7); #Monocytes 0.6 thou/uL (0.11-0.59); #Neutrophils 3.5 thou/uL (1.40-6.50); %Basophils 0.5 % (0.0-1.0); %Eosinophils 1.5 % (0.0-10.0); %Monocytes 10.9 % (0.0-10.0); %Neutrophils 63.7 % (42.0-75.0); Hematocrit 26.5 % (42.0-52.0); Hemoglobin 7.9 g/dL (14.0-18.0); Mean Corpuscular HGB CONC 29.8 g/dL (32.0-36.0); Mean Platelet Volume 8.6 fL (7.4-10.4); Platelet Count 279 10x3/uL (130-400); RBC Distribution Width 17.5 % (11.5-14.5); Red Blood Cell (RBC) Count 2.82 mill/uL (4.70-6.10); White Blood Cell (WBC) Count 5.5 10x3/uL (4.8-10.8)
[2022-11-17 04:43] LABS: INR-International Normal Ratio 2.2; Prothrombin Time 25.2 sec (12.0-14.7)
[2022-11-17 05:00] LABS: ALT (SGPT) 8 U/L (8-55); AST (SGOT) 12 U/L (5-34); Albumin 2.9 g/dL (3.4-4.8); Alkaline Phosphatase 52 U/L (40-110); Anion Gap 12 mmol/L (10-20); BUN (Urea Nitrogen) 11 mg/dL (8.4-25.7); Bilirubin, Total 0.4 mg/dL (0.2-1.2); Calc. Creatinine Clearance 93 mL/min (70-130); Calcium 8.6 mg/dL (7.8-10.44); Carbon Dioxide 24 mmol/L (23-31); Chloride 109 mmol/L (98-107); Estimated GFR 92; Globulin 3.4 g/dL (2.4-3.5); Glucose 83 mg/dL (83-110); Potassium 3.7 mmol/L (3.5-5.1); Protein, Total 6.3 g/dL (5.8-8.1); Sodium 141 mmol/L (136-145)
[2022-11-17] MEDS ORDERED: Cefepime 1 GM in Sodium Chloride 0.9% 100 ML IVPB SCH (05:00)
[2022-11-17] MEDS: Vancomycin 1 GM in Premix Bag 1 BAG IVPB SCH ×2 (05:38→17:37)
[2022-11-17] MEDS ORDERED: Ketamine 50 MG/ML (10ML VIAL) ONE (08:55)
[2022-11-17] MEDS ORDERED: PROPOFOL 200 MG/20 ML VIAL ONE (09:17)
[2022-11-17] MEDS ORDERED: Lidocaine 1% PF 5 ML VIAL ONE (09:17)
[2022-11-17] MEDS: Losartan 25 MG TAB PO SCH (10:18)
[2022-11-17] MEDS: Ezetimibe 10 MG TAB PO SCH (10:19)
[2022-11-17] MEDS: Acetaminophen 325 MG TAB PO PRN (14:57)
[2022-11-17] MEDS: Cefepime 2 GM in Sodium Chloride 0.9% 100 ML IVPB SCH (16:52)
[2022-11-17] MEDS: Rosuvastatin 20 MG TAB PO SCH (20:47)
[2022-11-17] MEDS: Tamsulosin HCl 0.4 MG CAP PO SCH (20:47)
[2022-11-18 04:07] LABS: #Eosinphils 0.1 thou/uL (0.0-0.7); #Monocytes 0.8 thou/uL (0.11-0.59); #Neutrophils 5.4 thou/uL (1.40-6.50); %Basophils 0.4 % (0.0-1.0); %Eosinophils 1.1 % (0.0-10.0); %Lymphocytes 16.2 % (21.0-51.0); %Monocytes 10.2 % (0.0-10.0); %Neutrophils 71.8 % (42.0-75.0); Hematocrit 29.4 % (42.0-52.0); Hemoglobin 8.8 g/dL (14.0-18.0); Mean Corpuscular HGB CONC 29.9 g/dL (32.0-36.0); Mean Corpuscular Hemoglobin 27.8 pg (27.0-31.0); Mean Platelet Volume 8.8 fL (7.4-10.4); Platelet Count 305 10x3/uL (130-400); RBC Distribution Width 17.7 % (11.5-14.5); Red Blood Cell (RBC) Count 3.16 mill/uL (4.70-6.10); White Blood Cell (WBC) Count 7.5 10x3/uL (4.8-10.8)
[2022-11-18 04:30] LABS: Anion Gap 11 mmol/L (10-20); BUN (Urea Nitrogen) 11 mg/dL (8.4-25.7); CRP (Inflammatory) 4.62 mg/dL (= or < 0.5); Calc. Creatinine Clearance 92 mL/min (70-130); Calcium 8.5 mg/dL (7.8-10.44); Carbon Dioxide 24 mmol/L (23-31); Chloride 106 mmol/L (98-107); Estimated GFR 92; Glucose 87 mg/dL (83-110); Sodium 137 mmol/L (136-145)
[2022-11-18 04:33] LABS: INR-International Normal Ratio 1.6
[2022-11-18] MEDS: Levothyroxine Sodium 100 MCG TAB PO SCH ×2 (05:18→07:23)
[2022-11-18] MEDS: Cefepime 2 GM in Sodium Chloride 0.9% 100 ML IVPB SCH ×2 (05:18→16:23)
[2022-11-18] MEDS: Vancomycin 1 GM in Premix Bag 1 BAG IVPB SCH ×2 (06:00→17:09)
[2022-11-18] MEDS: Losartan 25 MG TAB PO SCH (08:47)
[2022-11-18] MEDS: Ezetimibe 10 MG TAB PO SCH (08:48)
[2022-11-18] MEDS: Rosuvastatin 20 MG TAB PO SCH (22:05)
[2022-11-18] MEDS: Tamsulosin HCl 0.4 MG CAP PO SCH (22:05)
[2022-11-19 04:17] LABS: Hematocrit 28.5 % (42.0-52.0); Hemoglobin 8.6 g/dL (14.0-18.0); Platelet Count 292 10x3/uL (130-400)
[2022-11-19 04:27] LABS: INR-International Normal Ratio 1.3
[2022-11-19] MEDS: Cefepime 2 GM in Sodium Chloride 0.9% 100 ML IVPB SCH ×2 (04:45→16:53)
[2022-11-19] MEDS: Vancomycin 1 GM in Premix Bag 1 BAG IVPB SCH ×2 (05:22→17:42)
[2022-11-19] MEDS: Levothyroxine Sodium 100 MCG TAB PO SCH (05:22)
[2022-11-19] MEDS: Losartan 25 MG TAB PO SCH (08:42)
[2022-11-19] MEDS: Ezetimibe 10 MG TAB PO SCH (08:42)
[2022-11-19] MEDS: Acetaminophen 325 MG TAB PO PRN (16:54)
[2022-11-19] MEDS: Tamsulosin HCl 0.4 MG CAP PO SCH (21:22)
[2022-11-19] MEDS: Rosuvastatin 20 MG TAB PO SCH (21:22)
[2022-11-20 05:10] LABS: INR-International Normal Ratio 1.2; Prothrombin Time 15.5 sec (12.0-14.7)
[2022-11-20 05:29] LABS: Vancomycin, Trough 15.1 ug/mL
[2022-11-20] MEDS: Cefepime 2 GM in Sodium Chloride 0.9% 100 ML IVPB SCH ×2 (05:56→16:08)
[2022-11-20] MEDS: Levothyroxine Sodium 100 MCG TAB PO SCH (05:57)
[2022-11-20] MEDS: Vancomycin 1 GM in Premix Bag 1 BAG IVPB SCH ×2 (06:58→18:02)
[2022-11-20] MEDS ORDERED: CEFAZOLIN 2 GM in Sodium Chloride 0.9% 100 ML IVPB SCH (07:15)
[2022-11-20] MEDS: Losartan 25 MG TAB PO SCH (09:20)
[2022-11-20] MEDS: Ezetimibe 10 MG TAB PO SCH (09:20)
[2022-11-20] MEDS ORDERED: Vancomycin 1 GM VIAL ONE ×2 (11:07→11:14)
[2022-11-20] MEDS ORDERED: Tobramycin Sulfate 1.2 GM VIAL ONE (11:07)
[2022-11-20] MEDS ORDERED: HYDROmorphone 0.5 MG/0.5 ML SYRINGE ONE (11:24)
[2022-11-20] MEDS ORDERED: fentaNYL PF 100 MCG/2 ML SYRINGE ONE (11:24)
[2022-11-20] MEDS ORDERED: CEFAZOLIN 2 GM VIAL ONE (11:36)
[2022-11-20] MEDS ORDERED: Sodium Chloride 0.9% 0 ML ONE (11:36)
[2022-11-20] MEDS ORDERED: Ondansetron PF 4 MG/2 ML Vial ONE (11:54)
[2022-11-20] MEDS ORDERED: Dexamethasone 20 MG/5 ML VIAL ONE (11:54)
[2022-11-20] MEDS ORDERED: Lidocaine 1% PF 5 ML VIAL ONE (11:54)
[2022-11-20] MEDS ORDERED: PROPOFOL 200 MG/20 ML VIAL ONE (11:54)
[2022-11-20] MEDS ORDERED: Ropivacaine 0.5% HCl/PF (150 MG/30 ML VIAL) ONE (11:58)
[2022-11-20] MEDS ORDERED: fentaNYL 50 mcg/mL 1 mL Vial ONE ×2 (12:44→14:14)
[2022-11-20] MEDS ORDERED: fentaNYL 50 mcg/mL 1 mL Vial SLOW IVP PRN (13:41)
[2022-11-20] MEDS: HYDROcodone/Acetaminophen 10/325 mg Tablet PO PRN (16:07)
[2022-11-20] MEDS: Tamsulosin HCl 0.4 MG CAP PO SCH (20:28)
[2022-11-20] MEDS: Rosuvastatin 20 MG TAB PO SCH (20:28)
[2022-11-21] MEDS: Cefepime 2 GM in Sodium Chloride 0.9% 100 ML IVPB SCH ×2 (05:01→16:57)
[2022-11-21] MEDS: Vancomycin 1 GM in Premix Bag 1 BAG IVPB SCH ×2 (05:37→18:12)
[2022-11-21] MEDS: Levothyroxine Sodium 100 MCG TAB PO SCH (05:37)
[2022-11-21 06:08] LABS: Hematocrit 31.5 % (42.0-52.0); Hemoglobin 9.3 g/dL (14.0-18.0); Platelet Count 319 10x3/uL (130-400)
[2022-11-21 06:27] LABS: INR-International Normal Ratio 1.2; Prothrombin Time 15.2 sec (12.0-14.7)
[2022-11-21 06:33] LABS: Anion Gap 11 mmol/L (10-20); BUN (Urea Nitrogen) 11 mg/dL (8.4-25.7); Calc. Creatinine Clearance 100 mL/min (70-130); Calcium 8.6 mg/dL (7.8-10.44); Carbon Dioxide 25 mmol/L (23-31); Chloride 102 mmol/L (98-107); Estimated GFR 95; Glucose 100 mg/dL (83-110); Potassium 3.8 mmol/L (3.5-5.1); Sodium 134 mmol/L (136-145)
[2022-11-21] MEDS: Losartan 25 MG TAB PO SCH (08:09)
[2022-11-21] MEDS: HYDROcodone/Acetaminophen 10/325 mg Tablet PO PRN (08:09)
[2022-11-21] MEDS: Ezetimibe 10 MG TAB PO SCH (08:09)
[2022-11-21] MEDS: Acetaminophen 325 MG TAB PO PRN (16:58)
[2022-11-21] MEDS: Warfarin Sodium 5 MG TAB PO SCH (16:58)
[2022-11-21] MEDS: Tamsulosin HCl 0.4 MG CAP PO SCH (22:07)
[2022-11-21] MEDS: Rosuvastatin 20 MG TAB PO SCH (22:07)
[2022-11-22 05:03] LABS: #Basophils 0.1 thou/uL (0.0-0.2); #Eosinphils 0.1 thou/uL (0.0-0.7); #Monocytes 1.1 thou/uL (0.11-0.59); #Neutrophils 7.4 thou/uL (1.40-6.50); %Basophils 0.5 % (0.0-1.0); %Eosinophils 1.2 % (0.0-10.0); %Lymphocytes 12.6 % (21.0-51.0); %Neutrophils 74.1 % (42.0-75.0); Hematocrit 28.3 % (42.0-52.0); Hemoglobin 8.5 g/dL (14.0-18.0); Mean Corpuscular Hemoglobin 28.1 pg (27.0-31.0); Mean Corpuscular Volume 93.4 fl (78.0-98.0); Mean Platelet Volume 8.9 fL (7.4-10.4); Platelet Count 293 10x3/uL (130-400); RBC Distribution Width 18.6 % (11.5-14.5); Red Blood Cell (RBC) Count 3.03 mill/uL (4.70-6.10); White Blood Cell (WBC) Count 10.1 10x3/uL (4.8-10.8)
[2022-11-22 05:15] LABS: INR-International Normal Ratio 1.3; Prothrombin Time 16.2 sec (12.0-14.7)
[2022-11-22] MEDS: Levothyroxine Sodium 100 MCG TAB PO SCH (05:28)
[2022-11-22] MEDS: Cefepime 2 GM in Sodium Chloride 0.9% 100 ML IVPB SCH ×2 (05:29→17:21)
[2022-11-22 05:30] LABS: Anion Gap 9 mmol/L (10-20); BUN (Urea Nitrogen) 18 mg/dL (8.4-25.7); Calc. Creatinine Clearance 69 mL/min (70-130); Calcium 8.6 mg/dL (7.8-10.44); Carbon Dioxide 24 mmol/L (23-31); Chloride 105 mmol/L (98-107); Estimated GFR 74; Glucose 96 mg/dL (83-110); Potassium 3.8 mmol/L (3.5-5.1); Sodium 134 mmol/L (136-145)
[2022-11-22] MEDS: Vancomycin 1 GM in Premix Bag 1 BAG IVPB SCH ×2 (05:35→19:30)
[2022-11-22] MEDS: Acetaminophen 325 MG TAB PO PRN ×2 (09:48→22:05)
[2022-11-22] MEDS: Ezetimibe 10 MG TAB PO SCH (09:48)
[2022-11-22 13:29] VITALS: BMI 25.2
[2022-11-22] MEDS: Warfarin Sodium 5 MG TAB PO SCH (17:21)
[2022-11-22] MEDS: Rosuvastatin 20 MG TAB PO SCH (22:06)
[2022-11-22] MEDS: Tamsulosin HCl 0.4 MG CAP PO SCH (22:06)
[2022-11-23] MEDS: Cefepime 2 GM in Sodium Chloride 0.9% 100 ML IVPB SCH ×2 (04:31→17:37)
[2022-11-23 05:20] LABS: #Eosinphils 0.2 thou/uL (0.0-0.7); #Monocytes 0.9 thou/uL (0.11-0.59); #Neutrophils 6.1 thou/uL (1.40-6.50); %Basophils 0.5 % (0.0-1.0); %Eosinophils 2.2 % (0.0-10.0); %Lymphocytes 17.3 % (21.0-51.0); %Monocytes 10.4 % (0.0-10.0); %Neutrophils 68.9 % (42.0-75.0); Hematocrit 27.7 % (42.0-52.0); Hemoglobin 8.4 g/dL (14.0-18.0); Mean Corpuscular HGB CONC 30.3 g/dL (32.0-36.0); Mean Corpuscular Hemoglobin 27.7 pg (27.0-31.0); Mean Corpuscular Volume 91.4 fl (78.0-98.0); Mean Platelet Volume 8.9 fL (7.4-10.4); Platelet Count 301 10x3/uL (130-400); RBC Distribution Width 18.6 % (11.5-14.5); Red Blood Cell (RBC) Count 3.03 mill/uL (4.70-6.10); White Blood Cell (WBC) Count 8.8 10x3/uL (4.8-10.8)
[2022-11-23 05:26] LABS: INR-International Normal Ratio 1.3; Prothrombin Time 16.8 sec (12.0-14.7)
[2022-11-23 05:37] LABS: Anion Gap 12 mmol/L (10-20); BUN (Urea Nitrogen) 18 mg/dL (8.4-25.7); Calc. Creatinine Clearance 69 mL/min (70-130); Calcium 8.8 mg/dL (7.8-10.44); Carbon Dioxide 23 mmol/L (23-31); Chloride 106 mmol/L (98-107); Estimated GFR 74; Glucose 90 mg/dL (83-110); Potassium 3.7 mmol/L (3.5-5.1); Sodium 137 mmol/L (136-145)
[2022-11-23 05:47] LABS: Vancomycin, Trough 19.4 ug/mL
[2022-11-23] MEDS: Levothyroxine Sodium 100 MCG TAB PO SCH (06:28)
[2022-11-23] MEDS: Vancomycin 1 GM in Premix Bag 1 BAG IVPB SCH ×2 (06:29→18:33)
[2022-11-23] MEDS: Acetaminophen 325 MG TAB PO PRN ×3 (08:26→20:54)
[2022-11-23] MEDS: Ezetimibe 10 MG TAB PO SCH (08:26)
[2022-11-23] MEDS: Warfarin Sodium 7.5 MG TAB PO SCH (17:37)
[2022-11-23] MEDS: Tamsulosin HCl 0.4 MG CAP PO SCH (20:54)
[2022-11-23] MEDS: Rosuvastatin 20 MG TAB PO SCH (20:54)
[2022-11-23] MEDS: HYDROcodone/Acetaminophen 10/325 mg Tablet PO PRN (23:27)
[2022-11-24] MEDS: HYDROcodone/Acetaminophen 10/325 mg Tablet PO PRN ×3 (04:17→22:07)
[2022-11-24] MEDS: Cefepime 2 GM in Sodium Chloride 0.9% 100 ML IVPB SCH ×2 (04:18→16:02)
[2022-11-24] MEDS: Levothyroxine Sodium 100 MCG TAB PO SCH (05:02)
[2022-11-24] MEDS: Vancomycin 1 GM in Premix Bag 1 BAG IVPB SCH ×2 (05:03→18:26)
[2022-11-24 05:51] LABS: #Eosinphils 0.1 thou/uL (0.0-0.7); #Monocytes 1.1 thou/uL (0.11-0.59); #Neutrophils 7.8 thou/uL (1.40-6.50); %Basophils 0.4 % (0.0-1.0); %Eosinophils 1.4 % (0.0-10.0); %Lymphocytes 10.3 % (21.0-51.0); %Monocytes 10.6 % (0.0-10.0); %Neutrophils 76.7 % (42.0-75.0); Hematocrit 25.8 % (42.0-52.0); Hemoglobin 7.8 g/dL (14.0-18.0); Mean Corpuscular HGB CONC 30.2 g/dL (32.0-36.0); Mean Corpuscular Hemoglobin 28.2 pg (27.0-31.0); Mean Corpuscular Volume 93.1 fl (78.0-98.0); Platelet Count 286 10x3/uL (130-400); RBC Distribution Width 18.3 % (11.5-14.5); Red Blood Cell (RBC) Count 2.77 mill/uL (4.70-6.10); White Blood Cell (WBC) Count 10.2 10x3/uL (4.8-10.8)
[2022-11-24 05:58] LABS: INR-International Normal Ratio 1.4
[2022-11-24 06:09] LABS: Anion Gap 10 mmol/L (10-20); BUN (Urea Nitrogen) 17 mg/dL (8.4-25.7); Calc. Creatinine Clearance 78 mL/min (70-130); Calcium 8.5 mg/dL (7.8-10.44); Carbon Dioxide 24 mmol/L (23-31); Chloride 105 mmol/L (98-107); Estimated GFR 85; Glucose 127 mg/dL (83-110); Potassium 3.6 mmol/L (3.5-5.1); Sodium 135 mmol/L (136-145)
[2022-11-24] MEDS: Ezetimibe 10 MG TAB PO SCH (09:40)
[2022-11-24] MEDS: Warfarin Sodium 7.5 MG TAB PO SCH (16:04)
[2022-11-24 17:58] LABS: Vancomycin, Trough 13.3 ug/mL
[2022-11-24] MEDS: Rosuvastatin 20 MG TAB PO SCH (22:08)
[2022-11-24] MEDS: Tamsulosin HCl 0.4 MG CAP PO SCH (22:08)
[2022-11-24] MEDS: VANCOMYCIN 1.25 GM/250 ML BAG 1.25 GM in Premix Bag 1 BAG IVPB SCH (22:09)
[2022-11-25] MEDS: Cefepime 2 GM in Sodium Chloride 0.9% 100 ML IVPB SCH ×2 (06:05→16:40)
[2022-11-25] MEDS: Levothyroxine Sodium 100 MCG TAB PO SCH (06:05)
[2022-11-25 07:17] LABS: INR-International Normal Ratio 1.7; Prothrombin Time 20.3 sec (12.0-14.7)
[2022-11-25] MEDS: Acetaminophen 325 MG TAB PO PRN ×2 (08:11→12:51)
[2022-11-25] MEDS: Ezetimibe 10 MG TAB PO SCH (08:12)
[2022-11-25] MEDS: VANCOMYCIN 1.25 GM/250 ML BAG 1.25 GM in Premix Bag 1 BAG IVPB SCH ×2 (09:23→21:28)
[2022-11-25] MEDS: Warfarin Sodium 7.5 MG TAB PO SCH (16:39)
[2022-11-25] MEDS: Rosuvastatin 20 MG TAB PO SCH (21:29)
[2022-11-25] MEDS: Tamsulosin HCl 0.4 MG CAP PO SCH (21:29)
[2022-11-26] MEDS: Levothyroxine Sodium 100 MCG TAB PO SCH (05:31)
[2022-11-26] MEDS: Cefepime 2 GM in Sodium Chloride 0.9% 100 ML IVPB SCH ×2 (05:31→17:35)
[2022-11-26 05:53] LABS: %Basophils 0.3 % (0.0-1.0); %Eosinophils 0.4 % (0.0-10.0); %Lymphocytes 7.5 % (21.0-51.0); %Monocytes 9.2 % (0.0-10.0); %Neutrophils 82.2 % (42.0-75.0); Hematocrit 22.8 % (42.0-52.0); Hemoglobin 6.9 g/dL (14.0-18.0); Mean Corpuscular HGB CONC 30.3 g/dL (32.0-36.0); Mean Corpuscular Hemoglobin 27.4 pg (27.0-31.0); Mean Corpuscular Volume 90.5 fl (78.0-98.0); Mean Platelet Volume 9.1 fL (7.4-10.4); Platelet Count 298 10x3/uL (130-400); RBC Distribution Width 17.8 % (11.5-14.5); Red Blood Cell (RBC) Count 2.52 mill/uL (4.70-6.10); White Blood Cell (WBC) Count 10.9 10x3/uL (4.8-10.8)
[2022-11-26 06:05] LABS: INR-International Normal Ratio 1.9; Prothrombin Time 23.1 sec (12.0-14.7)
[2022-11-26 06:22] LABS: Anion Gap 12 mmol/L (10-20); BUN (Urea Nitrogen) 18 mg/dL (8.4-25.7); Calc. Creatinine Clearance 71 mL/min (70-130); Calcium 8.3 mg/dL (7.8-10.44); Carbon Dioxide 24 mmol/L (23-31); Chloride 103 mmol/L (98-107); Estimated GFR 76; Glucose 103 mg/dL (83-110); Potassium 3.6 mmol/L (3.5-5.1); Sodium 135 mmol/L (136-145)
[2022-11-26 07:26] LABS: Vancomycin, Trough 8.8 ug/mL
[2022-11-26] MEDS: Ezetimibe 10 MG TAB PO SCH (09:04)
[2022-11-26] MEDS: VANCOMYCIN 1.75 GM/500 ML BAG 1.75 GM in Premix Bag 1 BAG IVPB SCH ×2 (09:04→20:58)
[2022-11-26] MEDS ORDERED: WARFARIN IVPB PRN (14:14)
[2022-11-26] MEDS ORDERED: [UNRECOGNIZED DRUG - OTHER] IVPB PRN (14:14)
[2022-11-26] MEDS ORDERED: Warfarin Sodium 10 MG TAB PO SCH (17:00)
[2022-11-26 19:00] LABS: Hematocrit 24.7 % (42.0-52.0); Hemoglobin 7.8 g/dL (14.0-18.0)
[2022-11-26] MEDS: Tamsulosin HCl 0.4 MG CAP PO SCH (20:58)
[2022-11-26] MEDS: Rosuvastatin 20 MG TAB PO SCH (20:58)
[2022-11-26] MEDS: Acetaminophen 325 MG TAB PO PRN (21:05)
[2022-11-27] MEDS: Levothyroxine Sodium 100 MCG TAB PO SCH (05:08)
[2022-11-27] MEDS: Cefepime 2 GM in Sodium Chloride 0.9% 100 ML IVPB SCH ×2 (05:08→16:28)
[2022-11-27] MEDS: Acetaminophen 325 MG TAB PO PRN ×2 (05:24→20:59)
[2022-11-27 05:46] LABS: #Eosinphils 0.1 thou/uL (0.0-0.7); %Basophils 0.3 % (0.0-1.0); %Eosinophils 1.4 % (0.0-10.0); %Lymphocytes 10.1 % (21.0-51.0); %Monocytes 11.2 % (0.0-10.0); %Neutrophils 76.6 % (42.0-75.0); Hematocrit 23.8 % (42.0-52.0); Hemoglobin 7.3 g/dL (14.0-18.0); Mean Corpuscular HGB CONC 30.7 g/dL (32.0-36.0); Mean Corpuscular Hemoglobin 27.9 pg (27.0-31.0); Mean Corpuscular Volume 90.8 fl (78.0-98.0); Mean Platelet Volume 9.4 fL (7.4-10.4); Platelet Count 306 10x3/uL (130-400); RBC Distribution Width 17.9 % (11.5-14.5); Red Blood Cell (RBC) Count 2.62 mill/uL (4.70-6.10); White Blood Cell (WBC) Count 9.2 10x3/uL (4.8-10.8)
[2022-11-27 05:53] LABS: INR-International Normal Ratio 2.4; Prothrombin Time 26.8 sec (12.0-14.7)
[2022-11-27] MEDS: VANCOMYCIN 1.75 GM/500 ML BAG 1.75 GM in Premix Bag 1 BAG IVPB SCH ×2 (08:31→21:07)
[2022-11-27] MEDS: Ezetimibe 10 MG TAB PO SCH (08:32)
[2022-11-27] MEDS: Losartan 25 MG TAB PO SCH (08:49)
[2022-11-27] MEDS ORDERED: Warfarin Sodium 7.5 MG TAB PO SCH (17:00)
[2022-11-27 20:06] LABS: Vancomycin, Trough 9.4 ug/mL
[2022-11-27] MEDS: Vancomycin 1.5 GRAM/300 ML BAG 1.5 GM in Premix Bag 1 BAG IVPB SCH (20:58)
[2022-11-27] MEDS: Rosuvastatin 20 MG TAB PO SCH (20:58)
[2022-11-27] MEDS: Tamsulosin HCl 0.4 MG CAP PO SCH (20:59)
[2022-11-28] MEDS: Vancomycin 1.5 GRAM/300 ML BAG 1.5 GM in Premix Bag 1 BAG IVPB SCH ×3 (04:19→21:30)
[2022-11-28] MEDS: Levothyroxine Sodium 100 MCG TAB PO SCH (05:21)
[2022-11-28 05:48] LABS: Hematocrit 22.2 % (42.0-52.0); Hemoglobin 6.8 g/dL (14.0-18.0)
[2022-11-28 06:10] LABS: Anion Gap 13 mmol/L (10-20); BUN (Urea Nitrogen) 16 mg/dL (8.4-25.7); Calc. Creatinine Clearance 65 mL/min (70-130); Calcium 8.2 mg/dL (7.8-10.44); Carbon Dioxide 21 mmol/L (23-31); Chloride 107 mmol/L (98-107); Estimated GFR 69; Glucose 88 mg/dL (83-110); Sodium 138 mmol/L (136-145)
[2022-11-28 06:25] LABS: INR-International Normal Ratio 2.6; Prothrombin Time 29.4 sec (12.0-14.7)
[2022-11-28] MEDS: Ezetimibe 10 MG TAB PO SCH (08:46)
[2022-11-28] MEDS: Losartan 25 MG TAB PO SCH (08:46)
[2022-11-28] MEDS: Potassium Chloride 20 MEQ TAB PO SCH ×2 (10:35→12:54)
[2022-11-28 12:21] LABS: Iron 33 ug/dL (65-175); Iron Binding Capacity, Total 140 mcg/dL (261-462)
[2022-11-28] MEDS ORDERED: Warfarin Sodium 2.5 MG TAB PO SCH (17:00)
[2022-11-28] MEDS: Rosuvastatin 20 MG TAB PO SCH (20:03)
[2022-11-28] MEDS: Acetaminophen 325 MG TAB PO PRN (20:03)
[2022-11-28] MEDS: Tamsulosin HCl 0.4 MG CAP PO SCH (20:04)
[2022-11-28 20:39] LABS: Vancomycin, Trough 17.7 ug/mL
[2022-11-29 04:29] LABS: #Basophils 0.1 thou/uL (0.0-0.2); #Eosinphils 0.2 thou/uL (0.0-0.7); #Monocytes 0.9 thou/uL (0.11-0.59); #Neutrophils 5.7 thou/uL (1.40-6.50); %Basophils 0.6 % (0.0-1.0); %Lymphocytes 13.5 % (21.0-51.0); %Neutrophils 71.3 % (42.0-75.0); Hemoglobin 7.6 g/dL (14.0-18.0); Mean Corpuscular HGB CONC 30.4 g/dL (32.0-36.0); Mean Corpuscular Hemoglobin 27.7 pg (27.0-31.0); Mean Corpuscular Volume 91.2 fl (78.0-98.0); Mean Platelet Volume 9.2 fL (7.4-10.4); Platelet Count 334 10x3/uL (130-400); RBC Distribution Width 18.1 % (11.5-14.5); Red Blood Cell (RBC) Count 2.74 mill/uL (4.70-6.10); White Blood Cell (WBC) Count 7.9 10x3/uL (4.8-10.8)
[2022-11-29 04:53] LABS: INR-International Normal Ratio 2.3; Prothrombin Time 26.6 sec (12.0-14.7)
[2022-11-29] MEDS: Vancomycin 1.5 GRAM/300 ML BAG 1.5 GM in Premix Bag 1 BAG IVPB SCH ×3 (05:19→21:00)
[2022-11-29] MEDS: Levothyroxine Sodium 100 MCG TAB PO SCH (05:20)
[2022-11-29] MEDS: Ezetimibe 10 MG TAB PO SCH (08:38)
[2022-11-29] MEDS: Losartan 25 MG TAB PO SCH (08:38)
[2022-11-29] MEDS: Warfarin Sodium 5 MG TAB PO SCH (16:35)
[2022-11-29] MEDS: Acetaminophen 325 MG TAB PO PRN (21:00)
[2022-11-29] MEDS: Tamsulosin HCl 0.4 MG CAP PO SCH (21:00)
[2022-11-29] MEDS: Rosuvastatin 20 MG TAB PO SCH (21:00)
[2022-11-30] MEDS: Vancomycin 1.5 GRAM/300 ML BAG 1.5 GM in Premix Bag 1 BAG IVPB SCH ×3 (05:40→22:04)
[2022-11-30] MEDS: Levothyroxine Sodium 100 MCG TAB PO SCH (05:40)
[2022-11-30 06:42] LABS: INR-International Normal Ratio 2.3; Prothrombin Time 26.5 sec (12.0-14.7)
[2022-11-30] MEDS: Ezetimibe 10 MG TAB PO SCH (09:20)
[2022-11-30] MEDS: Losartan 25 MG TAB PO SCH (09:20)
[2022-11-30] MEDS: Acetaminophen 325 MG TAB PO PRN ×2 (09:29→22:11)
[2022-11-30] MEDS: Warfarin Sodium 5 MG TAB PO SCH (18:36)
[2022-11-30] MEDS: Rosuvastatin 20 MG TAB PO SCH (22:02)
[2022-11-30] MEDS: Tamsulosin HCl 0.4 MG CAP PO SCH (22:02)
[2022-12-01] MEDS: Levothyroxine Sodium 100 MCG TAB PO SCH (06:08)
[2022-12-01 06:13] LABS: Hematocrit 25.8 % (42.0-52.0); Hemoglobin 7.8 g/dL (14.0-18.0); Mean Corpuscular HGB CONC 30.2 g/dL (32.0-36.0); Mean Corpuscular Hemoglobin 27.7 pg (27.0-31.0); Mean Corpuscular Volume 91.5 fl (78.0-98.0); Mean Platelet Volume 8.9 fL (7.4-10.4); Platelet Count 353 10x3/uL (130-400); RBC Distribution Width 17.7 % (11.5-14.5); Red Blood Cell (RBC) Count 2.82 mill/uL (4.70-6.10); White Blood Cell (WBC) Count 7.8 10x3/uL (4.8-10.8)
[2022-12-01 06:27] LABS: INR-International Normal Ratio 2.5; Prothrombin Time 27.9 sec (12.0-14.7)
[2022-12-01 06:33] LABS: Anion Gap 11 mmol/L (10-20); BUN (Urea Nitrogen) 16 mg/dL (8.4-25.7); Calc. Creatinine Clearance 64 mL/min (70-130); Calcium 8.2 mg/dL (7.8-10.44); Carbon Dioxide 25 mmol/L (23-31); Chloride 108 mmol/L (98-107); Estimated GFR 67; Glucose 92 mg/dL (83-110); Potassium 3.2 mmol/L (3.5-5.1); Sodium 141 mmol/L (136-145)
[2022-12-01 06:34] LABS: Vancomycin, Trough 27.5 ug/mL
[2022-12-01] MEDS: Vancomycin 1.5 GRAM/300 ML BAG 1.5 GM in Premix Bag 1 BAG IVPB SCH (06:51)
[2022-12-01] MEDS: Ezetimibe 10 MG TAB PO SCH (10:03)
[2022-12-01] MEDS: Losartan 25 MG TAB PO SCH (10:03)
[2022-12-01] MEDS: Acetaminophen 325 MG TAB PO PRN (10:11)
[2022-12-01] MEDS ORDERED: Potassium Chloride 20 MEQ TAB PO SCH (12:00)
[2022-12-01] MEDS ORDERED: cefTRIAXone\\ROCEPHIN 2 GM in Sodium Chloride 0.9% 100 ML IVPB SCH (13:15)
[2022-12-01] MEDS ORDERED: Vancomycin 1 GM in Premix Bag 1 BAG IVPB SCH (14:00)
[2022-12-01 15:48] VITALS: BP 142/69; TEMP 98.1
== END 2022-12-01 15:58 | disposition home health service (06) | DRG 467 ==
LOC: ERS 15:49 → ERHOLD 18:14 → 2NO 19:57 → SURG A 11-20 12:47
PROVIDERS: ADMIT Family Medicine; ATTEND Internal Medicine
PROC: B24BZZ4 Ultrasonography of Heart with Aorta, Transesophageal (ICD-10-PCS; principal; 2022-11-17)
PROC: 0SPC0JZ Removal of Synthetic Substitute from Right Knee Joint, Open Approach (ICD-10-PCS; 2022-11-20)
PROC: 0SRC0J9 Replacement of Right Knee Joint with Synthetic Substitute, Cemented, Open Approach (ICD-10-PCS; 2022-11-20)
PROC: 0QBD0ZZ Excision of Right Patella, Open Approach (ICD-10-PCS; 2022-11-20)
PROC: 30233N1 Transfusion of Nonautologous Red Blood Cells into Peripheral Vein, Percutaneous Approach (ICD-10-PCS; 2022-11-26)
DX: T84.53XA Infection and inflammatory reaction due to internal right knee prosthesis, initial encounter (principal); E87.1 Hypo-osmolality and hyponatremia; R78.81 Bacteremia; M00.9 Pyogenic arthritis, unspecified; N39.0 Urinary tract infection, site not specified; I48.20 Chronic atrial fibrillation, unspecified; Z96.651 Presence of right artificial knee joint; I25.10 Atherosclerotic heart disease of native coronary artery without angina pectoris; E11.9 Type 2 diabetes mellitus without complications; E78.5 Hyperlipidemia, unspecified; K21.9 Gastro-esophageal reflux disease without esophagitis; D63.8 Anemia in other chronic diseases classified elsewhere; E87.6 Hypokalemia; N40.0 Benign prostatic hyperplasia without lower urinary tract symptoms; D64.9 Anemia, unspecified; Z95.0 Presence of cardiac pacemaker; Z79.01 Long term (current) use of anticoagulants; Z98.890 Other specified postprocedural states; Z95.2 Presence of prosthetic heart valve; Z82.49 Family history of ischemic heart disease and other diseases of the circulatory system; Z79.82 Long term (current) use of aspirin; Z79.890 Hormone replacement therapy
CPT/HCPCS: 36415; 36416; 36430; 36569; 71045; 80048; 80053; 80202; 81001; 82575; 83540; 83550; 83605; 85014; 85018; 85025; 85027; 85046; 85049; 85610; 86140; 86850; 86900; 86901; 87040; 87070; 87077; 87086; 87186; 87205; 88304; 88311; 93005; 93312; 96365; 96367; C1751; C1776; J0692; J0696; J1100; J1170; J1650; J2405; J2704; J2795; J3010; J3260; J3370; J3370-JW; J3490; P9016

== ENCOUNTER 2022-12-02 16:42 | Emergency (ER) | payer MEDICARE ==
[2022-12-02 17:31] LABS: #Basophils 0.1 thou/uL (0.0-0.2); #Eosinphils 0.2 thou/uL (0.0-0.7); #Monocytes 0.9 thou/uL (0.11-0.59); #Neutrophils 8.9 thou/uL (1.40-6.50); %Basophils 0.4 % (0.0-1.0); %Eosinophils 1.7 % (0.0-10.0); %Lymphocytes 12.1 % (21.0-51.0); %Monocytes 7.8 % (0.0-10.0); %Neutrophils 77.6 % (42.0-75.0); Hematocrit 28.1 % (42.0-52.0); Hemoglobin 8.8 g/dL (14.0-18.0); Mean Corpuscular HGB CONC 31.3 g/dL (32.0-36.0); Mean Corpuscular Volume 89.5 fl (78.0-98.0); Platelet Count 398 10x3/uL (130-400); RBC Distribution Width 17.7 % (11.5-14.5); Red Blood Cell (RBC) Count 3.14 mill/uL (4.70-6.10); White Blood Cell (WBC) Count 11.4 10x3/uL (4.8-10.8)
[2022-12-02 17:45] LABS: INR-International Normal Ratio 2.7
[2022-12-02 17:46] LABS: PTT 55.6 sec (22.9-36.1)
[2022-12-02 17:56] LABS: ALT (SGPT) 26 U/L (8-55); AST (SGOT) 24 U/L (5-34); Albumin 2.8 g/dL (3.4-4.8); Alkaline Phosphatase 67 U/L (40-110); Anion Gap 14 mmol/L (10-20); BUN (Urea Nitrogen) 17 mg/dL (8.4-25.7); Bilirubin, Total 0.6 mg/dL (0.2-1.2); Calc. Creatinine Clearance 0 mL/min (70-130); Calcium 8.3 mg/dL (7.8-10.44); Carbon Dioxide 24 mmol/L (23-31); Chloride 107 mmol/L (98-107); Estimated GFR 58; Globulin 3.7 g/dL (2.4-3.5); Glucose 101 mg/dL (83-110); Potassium 3.3 mmol/L (3.5-5.1); Protein, Total 6.5 g/dL (5.8-8.1); Sodium 142 mmol/L (136-145)
[2022-12-02] MEDS ORDERED: Acetaminophen 500 MG TAB ONE (19:33)
[2022-12-02] MEDS ORDERED: Potassium Chloride 20 MEQ TAB ONE (19:33)
== END 2022-12-02 20:11 | disposition home or self-care (01) ==
LOC: ERS 16:42
DX: R22.32 Localized swelling, mass and lump, left upper limb (principal); D64.9 Anemia, unspecified; E87.6 Hypokalemia; I10 Essential (primary) hypertension; E78.5 Hyperlipidemia, unspecified; I25.10 Atherosclerotic heart disease of native coronary artery without angina pectoris; Z79.82 Long term (current) use of aspirin; Z79.899 Other long term (current) drug therapy; Z79.01 Long term (current) use of anticoagulants
CPT/HCPCS: 36415; 80053; 85025; 85610; 85730

== ENCOUNTER 2023-11-11 06:57 | Emergency (ER) | payer MEDICARE | END 2023-11-11 08:50 | disposition home or self-care (01) | LOC: ERS 06:57 | DX: U07.1 COVID-19 (principal); I10 Essential (primary) hypertension; I25.10 Atherosclerotic heart disease of native coronary artery without angina pectoris; E78.5 Hyperlipidemia, unspecified; Z86.73 Personal history of transient ischemic attack (TIA), and cerebral infarction without residual deficits | CPT/HCPCS: 71045 ==

== ENCOUNTER 2024-05-14 11:05 | Outpatient (CLI) | payer MEDICARE | END 2024-05-14 11:06 | disposition home or self-care (01) | LOC: BICRAD 11:05 | PROVIDERS: ATTEND Family Medicine | DX: M79.641 Pain in right hand (principal); M19.041 Primary osteoarthritis, right hand ==